=== PATIENT | male | born 1985 | race Caucasian/White ===

== ENCOUNTER 2018-08-29 14:27 | Emergency (ER) | payer MEDICAID, OTHER ==
[~2018-08-29] VITALS: Ht 177.8 cm; Wt 70.5 kg
[~2018-08-29 14:27] MED LIST: BENZ0.5T44 PO; QUET300T2 PO; RISP1 PO; ZOLP10TA7 PO
[2018-08-29] MEDS ORDERED: IBUPROFEN 600 MG TABLET PO ONE (19:30)
[2018-08-29 20:30] VITALS: BP 120/71
== END 2018-08-29 20:47 | disposition home or self-care (01) ==
LOC: EMS 14:28
DX: M25.561 Pain in right knee (principal); F31.9 Bipolar disorder, unspecified; F20.9 Schizophrenia, unspecified; X50.1XXA Overexertion from prolonged static or awkward postures, initial encounter; Y93.89 Activity, other specified; Y92.89 Other specified places as the place of occurrence of the external cause; Y99.8 Other external cause status